=== PATIENT | male | born 1945 ===

== ENCOUNTER 2017-04-29 05:46 | Inpatient (IN) | payer OTHER, SELFPAY ==
[2017-04-29] MEDS ORDERED: Nitroglycerin 2% Ointment Foilpak UD TOP STA (06:09)
[2017-04-29] MEDS ORDERED: Nitroglycerin 2% Ointment Foilpak UD TOP ONE (06:15)
--- NOTE | 2017-04-29 06:23 | C.PDOC ---
History Of Present Illness <Joshua Rebolledo - Last Filed: 04/29/17 06:40> <Jairo Flores - Last Filed: 04/29/17 07:54> 71 year old male presents to the ED with complaints of worsening SOB for two days. Patient states he is poor compliance with his medications and sees and unknown manager emergency department in [place]. He denies any chest pain, cough, or palpitations. (Joshua Rebolledo) History Per: Patient History/Exam Limitations: no limitations Onset/Duration Of Symptoms: Days (2) Current Symptoms Are (Timing): Still Present Associated Symptoms: denies: Fever, Chills, Bloody Cough, Productive Cough, Dizziness Recent travel outside of the [place]: No <Joshua Rebolledo - Last Filed: 04/29/17 06:40> <Jairo Flores - Last Filed: 04/29/17 07:54> Time Seen by Provider: 04/29/17 06:04 Chief Complaint (Nursing): Shortness Of Breath Past Medical History Reviewed: Historical Data, Nursing Documentation, Vital Signs - Medical History PMH: CHF, HTN, Hypercholesterolemia Surgical History: CABG Family History: States: Unknown Family Hx - Social History Hx Tobacco Use: No Hx Alcohol Use: No Hx Substance Use: No - Immunization History Hx Tetanus Toxoid Vaccination: No Hx Influenza Vaccination: No Hx Pneumococcal Vaccination: No <Joshua Rebolledo - Last Filed: 04/29/17 06:40> Review Of Systems Constitutional: Negative for: Fever, Chills Cardiovascular: Negative for: Chest Pain, Palpitations Respiratory: Positive for: Shortness of Breath. Negative for: Cough Gastrointestinal: Negative for: Nausea, Vomiting, Abdominal Pain, Diarrhea <Joshua Rebolledo - Last Filed: 04/29/17 06:40> Physical Exam - Physical Exam Appears: Non-toxic, In Acute Distress (patient in mild distress ), Other ( Patient is not obese. ) Skin: Warm, Dry Head: Atraumatic Eye(s): bilateral: Normal Inspection Oral Mucosa: Moist Neck: Supple Chest: Symmetrical, No Deformity Cardiovascular: Rhythm Regular, Other (mild jugular venous distension ) Respiratory: Rales (mild rales at bilateral bases ), No Rhonchi, No Stridor, No Wheezing Gastrointestinal/Abdominal: Soft, No Tenderness, No Distention, No Guarding, No Rebound Extremity: Normal ROM, No Tenderness, No Pedal Edema, No Calf Tenderness, Capillary Refill (good capillary refill, less than two seconds ), No Swelling, Other (no edema to the lower extremities ) Neurological/Psych: Oriented x3 <Joshua Rebolleod - Last Filed: 04/29/17 06:40> ED Course And Treatment ECG: Interpreted By Me ECG Rhythm: Sinus Rhythm ECG Interpretation: Abnormal Rate From EC O2 Sat by Pulse Oximetry: 99 (room air ) Pulse Ox Interpretation: Normal - Radiology CXR: Interpreted by Me CXR Interpretation: Yes: No Acute Disease, Other (no CHF) Reevaluation Time: 06:41 Reassessment Condition: Improved <Joshua Rebolledo Last Filed: 04/29/17 06:40> - Laboratory Results Result Diagrams: 04/29/17 06:28 04/29/17 06:28 <Jairo Flores - Last Filed: 04/29/17 07:54> Medical Decision Making <Joshua Rebolledo - Last Filed: 04/29/17 06:40> <Jairo Flores - Last Filed: 04/29/17 07:54> Medical Decision Makinam pt s/o to me by Dr Rebolledo pending lab tests. 730am disc plan for admission w pt. he is resting quietly no distress. 753am disc w hospitalist Dr Irving, will admit for shortness of breath, anginal equivalent. (Jairo Flores) Disposition <Joshua Rebolledo - Last Filed: 04/29/17 06:40> - Disposition Disposition Time: 07:54 <Jairo Flores - Last Filed: 04/29/17 07:54> - Disposition Disposition: HOSPITALIZED Condition: STABLE - Clinical Impression Clinical Impression: Systolic and diastolic CHF, chronic, Ischemic cardiomyopathy, Shortness of breath - Scribe Statement The provider has reviewed the documentation as recorded by the Scribe <Joshua Rebolledo - Last Filed: 04/29/17 06:40> <Jairo Flores - Last Filed: 04/29/17 07:54> - Scribe Statement Tanika Bose All medical record entries made by the Scribe were at my direction and personally dictated by me. I have reviewed the chart and agree that the record accurately reflects my personal performance of the history, physical exam, medical decision making, and the department course for this patient. I have also personally directed, reviewed, and agree with the discharge instructions and disposition. (Joshua Rebolledo) Physician Patient Turnover Patient Signed Over To: Jairo Flores Handoff Comments: follow-up labs and adm to hospitalists as needed. <Joshua Rebolledo - Last Filed: 04/29/17 06:40>
[2017-04-29 06:44] LABS: CHLORIDE 99 mmol/L (98-107)
[2017-04-29 06:45] LABS: POTASSIUM 4.2 mmol/L (3.6-5.2); SODIUM 139 mmol/L (132-148)
[2017-04-29 06:47] LABS: ALB/GLOB RATIO 1.2 (1.0-2.1); ALKALINE PHOSPHATASE 44 U/L (38-126); AST/SGOT 24 U/L (17-59); BILIRUBIN,TOTAL 0.5 mg/dL (0.2-1.3); CARBON DIOXIDE 31 mmol/L (22-30); GFR AFRICAN-AMERICAN > 60; TOTAL PROTEIN 6.7 g/dL (6.3-8.3)
[2017-04-29 06:48] LABS: ALT/SGPT 22 U/L (21-72); BLOOD UREA NITROGEN 29 mg/dL (9-20); CALCIUM 8.5 mg/dl (8.6-10.4); GLUCOSE,RANDOM 101 mg/dL (75-110)
[2017-04-29 06:49] LABS: BASO # 0.1 K/uL (0.0-0.2); BASO % 0.9 % (0.0-2.0); EOS # 0.4 K/uL (0.0-0.7); EOS % 5.8 % (0.0-4.0); HEMATOCRIT 43.8 % (35.0-51.0); LYMPH % 31.4 % (20.0-40.0); MEAN CELL VOLUME 96.5 fL (80.0-94.0); MEAN CORPUSCULAR HEMOGLOBIN 32.3 pg (27.0-31.0); MEAN CORPUSCULAR HGB CONC 33.4 g/dL (33.0-37.0); MONO # 0.6 K/uL (0.0-0.8); MONO % 9.3 % (0.0-10.0); RED CELL DISTRIBUTION WIDTH 12.7 % (11.5-14.5); WHITE BLOOD COUNT 6.3 K/uL (4.8-10.8)
[2017-04-29 06:52] LABS: INR 0.9
--- NOTE | 2017-04-29 09:13 | CP.PCM.PN ---
Subjective - Date & Time of Evaluation Date of Evaluation: 04/29/17 Time of Evaluation: 09:30 - Subjective Subjective: This is a 80-year-old male with a past medical history of hypertension, high cholesterol, CHF, CAD, CABG surgery 8 years ago ( he does not know the number of vessel bypass) aand smoking history, and likely has a history of COPD. He came with a chief complaint of worsening SOB for two days. and last night he woke up with a lot of difficulty breathing, and he reports dyspnea particularly on exertion. He was recently here he had a cardiac cath done showing a of about 25-30%in January 2016. At that time he was discharged with a life vest due to the low EF. When I saw him done in the ER, he did not have this LifeVest. The patient was not sure when this LifeVest was removed. Apparently he also sees a language path in [facility] When I saw the patient his breathing was improved a little, he had been given lasix already. Per review of the CXRAY he did not look fulminatly in CHF, also BNP was low this time. He does look dry on exam, no pitting edema - also very distant breath sounds. I realize that he has been treated for CHF in the past however it appears that this time it maybe more of a COPD/Emphesema that is occuring. We will continue with PO lasix, also check a CT without contrast of the chest, cardiac markers, another EKG (he has a RBB) and also give solumedrol 125 x1 and then 40 BID. Start nebulizer treatments as well as Spiriva. Continue other home medication such as statin, MARY, coreg, ASA. Medications he had with him include: Lisinopril 10mg QD Coreg 6.25 BID ASA 81 QD Simvastatin 10 QD KCL 20 These medication bottles have a Dr Dejesus as the prescriber whom I do not know. And when I asked patient he is not sure either. PMD: Dr. Joe (but I don't see visits on the computer) Allergies: NKDA PMHx: CAD, gastritis, HTN and diastolic and systolic CHF PSHx: CABG 2008, ulcer repair 1991 Family Hx: mother and father MIs (unknown ages) Social Hx: smoked tobacco 1ppd for 54 years quit 7 years ago, denies ETOH use, denies illicit drug use, lives with , retired construction management assistant Objective - Vital Signs/Intake and Output Vital Signs (last 24 hours): Temp Pulse Resp BP Pulse Ox 98 F 94 H 22 115/78 94 L 04/29/17 06:26 04/29/17 08:30 04/29/17 08:30 04/29/17 08:30 04/29/17 08:30 - Medications Medications: Current Medications Albuterol/Ipratropium (Duoneb 3 Mg/0.5 Mg (3 Ml) Ud) 3 ml INH RQ6 DAPHNIE Aspirin (Aspirin Chewable) 81 mg PO DAILY DAPHNIE Budesonide (Pulmicort Respules) 0.5 mg INH RQ12 DAPHNIE Carvedilol (Coreg) 3.125 mg PO BID DAPHNIE Docusate Sodium (Colace) 100 mg PO BID DAPHNIE Furosemide (Lasix) 40 mg PO DAILY DAPHNIE Heparin Sodium (Porcine) (Heparin) 5,000 units SC Q12 DAPHNIE Lisinopril (Zestril) 2.5 mg PO DAILY DAPHNIE Methylprednisolone (Solu-Medrol) 125 mg IV ONCE ONE Stop: 04/29/17 09:03 Methylprednisolone (Solu-Medrol) 40 mg IV Q12 DAPHNIE Pantoprazole Sodium (Protonix Ec Tab) 40 mg PO DAILY DAPHNIE Rosuvastatin Calcium (Crestor) 10 mg PO HS DAPHNIE Tiotropium [place] (Spiriva) 18 mcg INH RQ24 DAPHNIE Tiotropium [place] (Spiriva Inhalation Handihaler Device) 1 inhaler INH ONCE ONE Stop: 04/29/17 09:05 - Labs Labs: PT 10.2 SECONDS (9.7-12.2) 04/29/17 06:28 INR 0.9 04/29/17 06:28 APTT 29 SECONDS (21-34) 04/29/17 06:28 - Constitutional Appears: No Acute Distress, Cachectic, Chronically Ill - Head Exam Head Exam: NORMAL INSPECTION - Eye Exam Eye Exam: EOMI, Normal appearance - ENT Exam ENT Exam: Mucous Membranes Moist - Respiratory Exam Respiratory Exam: Decreased Breath Sounds, NORMAL BREATHING PATTERN Additional comments: Very very distant breath sounds - Cardiovascular Exam Cardiovascular Exam: REGULAR RHYTHM - GI/Abdominal Exam GI & Abdominal Exam: Soft, Normal Bowel Sounds - Neurological Exam Neurological Exam: Alert, Awake, CN II-XII Intact, Oriented x3 Neuro motor strength exam: Left Upper Extremity: 5, Right Upper Extremity: 5, Left Lower Extremity: 5, Right Lower Extremity: 5 - Skin Skin Exam: Warm Additional comments: Flushed, pink appearance
--- NOTE | 2017-04-29 09:23 | CP.PCM.HP ---
History of Present Illness - History of Present Illness History of Present Illness: This is a 80-year-old male with a past medical history of hypertension, high cholesterol, CHF, CAD, CABG surgery 8 years ago ( he does not know the number of vessel bypass) aand smoking history, and likely has a history of COPD. He came with a chief complaint of worsening SOB for two days. and last night he woke up with a lot of difficulty breathing, and he reports dyspnea particularly on exertion. He was recently here he had a cardiac cath done showing a of about 25-30%in January 2016. At that time he was discharged with a life vest due to the low EF. When I saw him done in the ER, he did not have this LifeVest. The patient was not sure when this LifeVest was removed. Apparently he also sees a broadcast operations manager in [facility] When I saw the patient his breathing was improved a little, he had been given lasix already. Per review of the CXRAY he did not look fulminatly in CHF, also BNP was low this time. He does look dry on exam, no pitting edema - also very distant breath sounds. I realize that he has been treated for CHF in the past however it appears that this time it maybe more of a COPD/Emphesema that is occuring. We will continue with PO lasix, also check a CT without contrast of the chest, cardiac markers, another EKG (he has a RBB) and also give solumedrol 125 x1 and then 40 BID. Start nebulizer treatments as well as Spiriva. Continue other home medication such as statin, MARY, coreg, ASA. Medications he had with him include: Lisinopril 10mg QD Coreg 6.25 BID ASA 81 QD Simvastatin 10 QD KCL 20 These medication bottles have a Dr Dejesus as the prescriber whom I do not know. And when I asked patient he is not sure either. PMD: Dr. Joe (but I don't see visits on the computer) Allergies: NKDA PMHx: CAD, gastritis, HTN and diastolic and systolic CHF PSHx: CABG 2008, ulcer repair 1991 Family Hx: mother and father MIs (unknown ages) Social Hx: smoked tobacco 1ppd for 54 years quit 7 years ago, denies ETOH use, denies illicit drug use, lives with , retired construction lineman Present on Admission - Present on Admission Any Indicators Present on Admission: Yes History of DVT/PE: No History of Uncontrolled Diabetes: No Urinary Catheter: No Decubitus Ulcer Present: No Review of Systems - Constitutional Constitutional: Fatigue - Cardiovascular Cardiovascular: Chest Pain, Dyspnea on Exertion - Respiratory Respiratory: Dyspnea, Dyspnea on Exertion, Chest Congestion, Excessive Mucous Production - Gastrointestinal Gastrointestinal: absent: Abdominal Pain, Belching, Bloating - Genitourinary Genitourinary: absent: As Per HPI, Change in Urinary Stream, Difficulty Urinating - Musculoskeletal Musculoskeletal: absent: As Per HPI, Abnormal Gait - Neurological Neurological: absent: Abnormal Gait, Abnormal Hearing, Abnormal Movements Past Patient History - Past Medical History & Family History Past Medical History?: Yes - Past Social History Smoking Status: Former Smoker - CARDIAC Hx Congestive Heart Failure: Yes Hx Hypercholesterolemia: Yes Hx Hypertension: Yes - PULMONARY Hx Respiratory Disorders: No - NEUROLOGICAL Hx Neurological Disorder: No - HEENT Hx HEENT Problems: No - RENAL Hx Chronic Kidney Disease: No - ENDOCRINE/METABOLIC Hx Endocrine Disorders: No - HEMATOLOGICAL/ONCOLOGICAL Hx Blood Disorders: No - INTEGUMENTARY Hx Dermatological Problems: No - MUSCULOSKELETAL/RHEUMATOLOGICAL Hx Falls: No - GASTROINTESTINAL Hx Gastrointestinal Disorders: No - GENITOURINARY/GYNECOLOGICAL Hx Genitourinary Disorders: No - PSYCHIATRIC Hx Substance Use: No - SURGICAL HISTORY Hx Coronary Artery Bypass Graft: Yes - ANESTHESIA Hx Anesthesia: Yes Hx Anesthesia Reactions: No Meds Allergies/Adverse Reactions: Allergies Allergy/AdvReac Type Severity Reaction Status Date / Time No Known Allergies Allergy Verified 04/29/17 06:00 Physical Exam - Constitutional Appears: No Acute Distress, Chronically Ill - Head Exam Head Exam: NORMAL INSPECTION - Eye Exam Eye Exam: EOMI, Normal appearance - ENT Exam ENT Exam: Mucous Membranes Moist - Respiratory Exam Respiratory Exam: Decreased Breath Sounds Additional comments: Very very distant breath sounds. Almost barrel shaped appearance - Cardiovascular Exam Cardiovascular Exam: REGULAR RHYTHM - GI/Abdominal Exam GI & Abdominal Exam: Normal Bowel Sounds - Neurological Exam Neurological exam: Alert, CN II-XII Intact, Oriented x3 - Psychiatric Exam Psychiatric exam: Normal Affect, Normal Mood - Skin Skin Exam: Warm Additional comments: Flsuhed, pink appearnce Results - Vital Signs Recent Vital Signs: Last Vital Signs Temp 98 F 04/29/17 06:26 Pulse 94 H 04/29/17 08:30 Resp 22 04/29/17 08:30 BP 115/78 04/29/17 08:30 Pulse Ox 94 L 04/29/17 08:30 - Labs Result Diagrams: 04/29/17 06:28 04/29/17 06:28 Assessment & Plan (1) COPD (chronic obstructive pulmonary disease) Status: Suspected Priority: High Comment: IV solumedrol 125 x 1, then 40 IV BID. Started on Spiriva as well as Duonebulizers. Will also get a CT without contrast. He does not have a WBC, denied fever so will not give abx at this time (2) Chest pain, rule out acute myocardial infarction Status: Acute Comment: Will get additional cardiac enzymes, repeat EKG. He has a RBB. Also history of CABG, CAD noted as well. Continue ASA, Statin, Coreg, MARY-I (3) Systolic and diastolic CHF, chronic Status: Chronic Comment: History of EF being 25-30% in January of 2016. He was discharged on a life vest at that time. Currently continue with the PO lasix. He does not look fluid overload - he looks dry on exam. Also CXRAY and BNP look ok. This being said, continue with MARY and Coreg. Monitor for fluid overload. Check an Echo (4) Hx of CABG Status: Chronic Comment: He does not know how many vessel bypass. continue with the statin, coreg, ASA, and MARY-I (5) Prophylactic measure Status: Acute Comment: Protonix PO. Heparin SC BID
--- NOTE | 2017-04-29 10:01 | RAD ---
PROCEDURE: CHEST RADIOGRAPH, 1 VIEW HISTORY: Shortness of breath COMPARISON: 04/04/2016. FINDINGS: LUNGS: The lungs are well inflated and clear. PLEURA: No pneumothorax or pleural fluid seen. CARDIOVASCULAR: There is mild cardiomegaly. Status post CABG. OSSEOUS STRUCTURES: No significant abnormalities. VISUALIZED UPPER ABDOMEN: Normal. OTHER FINDINGS: None. IMPRESSION: No active pulmonary disease.
[2017-04-29] MEDS: Pantoprazole 40 mg EC Tab PO SCH (10:30)
--- NOTE | 2017-04-29 11:49 | CT ---
PROCEDURE: CT Chest without contrast HISTORY: shortness of breath, history of smoking COMPARISON: Chest radiograph performed the same day. TECHNIQUE: Contiguous axial images were obtained through the chest without intravenous contrast enhancement. Sagittal and coronal reconstructions were performed. Radiation dose (DLP): 263.39 mGy-cm. This CT exam was performed using one or more of the following dose reduction techniques: Automated exposure control, adjustment of the mA and/or kV according to patient size, and/or use of iterative reconstruction technique. FINDINGS: LUNGS: There is mild centrilobular emphysema in the lungs. There is a 8 mm subpleural nodule in the left anterior apex. There is no focal consolidation. The lungs are well inflated. There are no endobronchial lesions. MEDIASTINUM: There is aneurysmal dilatation of the ascending aorta which measures 4.0 x 3.9 cm. The heart is normal in size. There is no pericardial effusion. There are advanced atherosclerotic coronary artery calcifications. PLEURA: No pleural fluid. No pneumothorax. BONES: No fracture. No destructive lesion. Multilevel degenerative changes in the spine. UPPER ABDOMEN: There is a 2.2 cm simple cyst in the right hepatic lobe. There is also a 2.6 cm simple cyst in the upper pole of the right kidney.There is a 10 mm adenoma in the left adrenal gland. OTHER FINDINGS: None. IMPRESSION: 8 mm subpleural nodule in the left anterior apex. Follow up CT scan in 6 months is recommended to assess stability. No focal consolidation.
[2017-04-29] MEDS: Albuterol-Ipratrop 3 mg / 0.5 (3 ml) UD INH SCH ×2 (13:40→19:45)
[2017-04-29] MEDS: Budesonide 0.5 mg/2 ml Inhal Susp UD INH SCH (19:45)
[2017-04-29] MEDS: MethylPREDNISolone 40 mg Vial IV SCH (21:45)
[2017-04-30] MEDS: Albuterol-Ipratrop 3 mg / 0.5 (3 ml) UD INH SCH ×4 (01:11→19:03)
[2017-04-30] MEDS: Budesonide 0.5 mg/2 ml Inhal Susp UD INH SCH ×2 (08:28→19:03)
[2017-04-30] MEDS: Tiotropium 18 mcg Cap For Inhalation INH SCH (08:28)
[2017-04-30] MEDS: MethylPREDNISolone 40 mg Vial IV SCH ×2 (08:59→22:22)
[2017-04-30] MEDS: Pantoprazole 40 mg EC Tab PO SCH (09:00)
[2017-04-30 09:53] LABS: EOS % 0.1 % (0.0-4.0); HEMATOCRIT 44.2 % (35.0-51.0); LYMPH # 1.5 K/uL (1.0-4.3); MEAN CORPUSCULAR HEMOGLOBIN 31.5 pg (27.0-31.0); MEAN PLATELET VOLUME 7.9 fL (7.2-11.7); MONO # 0.9 K/uL (0.0-0.8); RED CELL DISTRIBUTION WIDTH 13.1 % (11.5-14.5)
[2017-04-30 10:02] LABS: BASO % 0.2 % (0.0-2.0); CHLORIDE 95 mmol/L (98-107); LYMPH % 10.6 % (20.0-40.0); MEAN CELL VOLUME 95.9 fL (80.0-94.0); MEAN CORPUSCULAR HGB CONC 32.8 g/dL (33.0-37.0); MONO % 6.3 % (0.0-10.0); SODIUM 136 mmol/L (132-148); WHITE BLOOD COUNT 14.4 K/uL (4.8-10.8)
[2017-04-30 10:03] LABS: POTASSIUM 3.7 mmol/L (3.6-5.2)
[2017-04-30 10:05] LABS: CARBON DIOXIDE 31 mmol/L (22-30); CHOLESTEROL 155 mg/dL (0-199); GFR AFRICAN-AMERICAN > 60
[2017-04-30 10:06] LABS: BLOOD UREA NITROGEN 27 mg/dL (9-20); CALCIUM 9.1 mg/dl (8.6-10.4); GLUCOSE,RANDOM 106 mg/dL (75-110)
[2017-04-30 10:36] LABS: THYROID STIMULATING HORMONE 0.43 mIU/L (0.46-4.68)
--- NOTE | 2017-04-30 10:38 | CP.PCM.PN ---
<Chet Olivarez - Last Filed: 04/30/17 10:38> Subjective - Date & Time of Evaluation Date of Evaluation: 04/30/17 Time of Evaluation: 07:05 Objective - Vital Signs/Intake and Output Vital Signs (last 24 hours): Temp Pulse Resp BP Pulse Ox 97.6 F 66 18 145/94 H 95 04/30/17 07:25 04/30/17 07:25 04/30/17 07:25 04/30/17 08:59 04/30/17 07:25 - Medications Medications: Current Medications Albuterol/Ipratropium (Duoneb 3 Mg/0.5 Mg (3 Ml) Ud) 3 ml INH RQ6 DAPHNIE Last Admin: 04/30/17 08:28 Dose: 3 ml Aspirin (Aspirin Chewable) 81 mg PO DAILY [facility] Last Admin: 04/30/17 09:00 Dose: 81 mg Budesonide (Pulmicort Respules) 0.5 mg INH RQ12 DAPHNIE Last Admin: 04/30/17 08:28 Dose: Not Given Carvedilol (Coreg) 3.125 mg PO BID [facility] Last Admin: 04/30/17 09:00 Dose: 3.125 mg Docusate Sodium (Colace) 100 mg PO BID DAPHNIE Last Admin: 04/30/17 09:00 Dose: 100 mg Furosemide (Lasix) 40 mg PO DAILY [facility] Last Admin: 04/30/17 08:59 Dose: 40 mg Heparin Sodium (Porcine) (Heparin) 5,000 units SC Q12 DAPHNIE Last Admin: 04/30/17 08:59 Dose: 5,000 units Lactulose (Enulose) 20 gm PO ONCE ONE Stop: 04/30/17 10:35 Lisinopril (Zestril) 2.5 mg PO DAILY [facility] Last Admin: 04/29/17 10:30 Dose: 2.5 mg Methylprednisolone (Solu-Medrol) 40 mg IV Q12 DAPHNIE Last Admin: 04/30/17 08:59 Dose: 40 mg Pantoprazole Sodium (Protonix Ec Tab) 40 mg PO DAILY [facility] Last Admin: 04/30/17 09:00 Dose: 40 mg Rosuvastatin Calcium (Crestor) 10 mg PO HS DAPHNIE Last Admin: 04/29/17 21:45 Dose: 10 mg Tiotropium [place] (Spiriva) 18 mcg INH RQ24 DAPHNIE Last Admin: 04/30/17 08:28 Dose: 18 mcg - Labs Labs: 04/30/17 09:48 04/30/17 09:48 PT 10.2 SECONDS (9.7-12.2) 04/29/17 06:28 INR 0.9 04/29/17 06:28 APTT 29 SECONDS (21-34) 04/29/17 06:28 Assessment and Plan - Assessment and Plan (Free Text) Assessment: CT Chest w/o contr. - 8 mm subpleural nodule in the left anterior apex. Follow up CT scan in 6 months is recommended to assess stability. <Chet Irving Samy - Last Filed: 04/30/17 12:36> Subjective - Subjective Subjective: Patient was seen and examined by me. The patient was reporting that his breathing was somewhat better. He denied chest pain, denied palpitation, denied dizziness, denied headache, reports eating is ok. Reports urinating ok. He reports + no BM in 2 days, and + coughing On exam he still has very distant breath sounds. Also I had him walk around in the hallway and he did so easily without chest pain or shortness of breath, on telemetry he was sinus in the 90s when I walked him The CT scan did not show infiltrates but did report a lesion that needs to be re -assessed in 6 months. Objective - Vital Signs/Intake and Output Vital Signs (last 24 hours): Temp Pulse Resp BP Pulse Ox 97.6 F 66 18 145/94 H 95 04/30/17 07:25 04/30/17 07:25 04/30/17 07:25 04/30/17 08:59 04/30/17 07:25 - Medications Medications: Current Medications Albuterol/Ipratropium (Duoneb 3 Mg/0.5 Mg (3 Ml) Ud) 3 ml INH RQ6 [facility] Last Admin: 04/30/17 08:28 Dose: 3 ml Aspirin (Aspirin Chewable) 81 mg PO DAILY [facility] Last Admin: 04/30/17 09:00 Dose: 81 mg Budesonide (Pulmicort Respules) 0.5 mg INH RQ12 [facility] Last Admin: 04/30/17 08:28 Dose: Not Given Carvedilol (Coreg) 3.125 mg PO BID [facility] Last Admin: 04/30/17 09:00 Dose: 3.125 mg Docusate Sodium (Colace) 100 mg PO BID [facility] Last Admin: 04/30/17 09:00 Dose: 100 mg Furosemide (Lasix) 40 mg PO DAILY [facility] Last Admin: 04/30/17 08:59 Dose: 40 mg Heparin Sodium (Porcine) (Heparin) 5,000 units SC Q12 [facility] Last Admin: 04/30/17 08:59 Dose: 5,000 units Lisinopril (Zestril) 2.5 mg PO DAILY [facility] Last Admin: 04/30/17 10:43 Dose: 2.5 mg Methylprednisolone (Solu-Medrol) 40 mg IV Q12 [facility] Last Admin: 04/30/17 08:59 Dose: 40 mg Pantoprazole Sodium (Protonix Ec Tab) 40 mg PO DAILY [facility] Last Admin: 04/30/17 09:00 Dose: 40 mg Rosuvastatin Calcium (Crestor) 10 mg PO HS [facility] Last Admin: 04/29/17 21:45 Dose: 10 mg Tiotropium [place] (Spiriva) 18 mcg INH RQ24 [facility] Last Admin: 04/30/17 08:28 Dose: 18 mcg - Labs Labs: 04/30/17 09:48 04/30/17 09:48 PT 10.2 SECONDS (9.7-12.2) 04/29/17 06:28 INR 0.9 04/29/17 06:28 APTT 29 SECONDS (21-34) 04/29/17 06:28 - Constitutional Appears: Well, No Acute Distress - Head Exam Head Exam: NORMAL INSPECTION, NORMOCEPHALIC - Eye Exam Eye Exam: EOMI - ENT Exam ENT Exam: Mucous Membranes Moist - Respiratory Exam Respiratory Exam: Decreased Breath Sounds, NORMAL BREATHING PATTERN Additional comments: Distant breath sounds - GI/Abdominal Exam GI & Abdominal Exam: Soft, Normal Bowel Sounds - Neurological Exam Neurological Exam: Alert, Awake, Oriented x3 - Psychiatric Exam Psychiatric exam: Normal Affect, Normal Mood - Skin Skin Exam: Normal Color, Warm Assessment and Plan (1) COPD (chronic obstructive pulmonary disease) Status: Suspected (2) Chest pain, rule out acute myocardial infarction Status: Acute (3) Systolic and diastolic CHF, chronic Status: Chronic (4) Hx of CABG Status: Chronic (5) Prophylactic measure Status: Acute - Assessment and Plan (Free Text) Assessment: Assessment & Plan (1) COPD (chronic obstructive pulmonary disease) 04/30: Today breathing is improved, was able to walk him around the hallway. He still has some coughing. WBC is high - probably from solumedrol. Monitor for fevers. The CT of the chest did not show infiltrates. Needs a repeat CT in 6 months to assess a nodule. History of smoking 04/29: IV solumedrol 125 x 1, then 40 IV BID. Started on Spiriva as well as Duonebulizers. Will also get a CT without contrast. He does not have a WBC, denied fever so will not give abx at this time (2) Chest pain, rule out acute myocardial infarction 04/30: Cardiac enzymes negative Will get additional cardiac enzymes, repeat EKG. He has a RBB. Also history of CABG, CAD noted as well. Continue ASA, Statin, Coreg, MARY-I (3) Systolic and diastolic CHF, chronic 04/30: Pending echo at this time History of EF being 25-30% in January of 2016. He was discharged on a life vest at that time. Currently continue with the PO lasix. He does not look fluid overload - he looks dry on exam. Also CXRAY and BNP look ok. This being said, continue with MARY and Coreg. Monitor for fluid overload. Check an Echo (4) Hx of CABG He does not know how many vessel bypass. continue with the statin, coreg, ASA, and MARY-I (5) Prophylactic measure Protonix PO. Heparin SC BID
[2017-04-30 16:05] VITALS: RESP 20
[2017-05-01] MEDS: Albuterol-Ipratrop 3 mg / 0.5 (3 ml) UD INH SCH ×3 (01:04→13:47)
[2017-05-01 07:22] LABS: BASO % 0.1 % (0.0-2.0); HEMATOCRIT 43.2 % (35.0-51.0); LYMPH # 0.9 K/uL (1.0-4.3); LYMPH % 10.6 % (20.0-40.0); MEAN CELL VOLUME 95.8 fL (80.0-94.0); MEAN CORPUSCULAR HEMOGLOBIN 31.4 pg (27.0-31.0); MEAN CORPUSCULAR HGB CONC 32.7 g/dL (33.0-37.0); MEAN PLATELET VOLUME 8.1 fL (7.2-11.7); MONO # 0.4 K/uL (0.0-0.8); MONO % 4.1 % (0.0-10.0); NRBC % 0.1 % (0.0-2.0); RED CELL DISTRIBUTION WIDTH 13.3 % (11.5-14.5); WHITE BLOOD COUNT 8.8 K/uL (4.8-10.8)
[2017-05-01] MEDS: Budesonide 0.5 mg/2 ml Inhal Susp UD INH SCH (07:35)
[2017-05-01] MEDS: Tiotropium 18 mcg Cap For Inhalation INH SCH (07:35)
[2017-05-01 07:40] LABS: CHLORIDE 100 mmol/L (98-107)
[2017-05-01 07:41] LABS: POTASSIUM 4.2 mmol/L (3.6-5.2); SODIUM 138 mmol/L (132-148)
[2017-05-01 07:43] LABS: ALB/GLOB RATIO 1.3 (1.0-2.1); ALKALINE PHOSPHATASE 43 U/L (38-126); ALT/SGPT 16 U/L (21-72); AST/SGOT 17 U/L (17-59); BILIRUBIN,TOTAL 0.5 mg/dL (0.2-1.3); BLOOD UREA NITROGEN 30 mg/dL (9-20); CARBON DIOXIDE 30 mmol/L (22-30); GFR AFRICAN-AMERICAN > 60; GLUCOSE,RANDOM 116 mg/dL (75-110); TOTAL PROTEIN 6.1 g/dL (6.3-8.3)
[2017-05-01 07:44] LABS: CALCIUM 8.8 mg/dl (8.6-10.4); MAGNESIUM 2.1 mg/dL (1.6-2.3); PHOSPHOROUS 4.5 mg/dL (2.5-4.5)
[2017-05-01] MEDS: MethylPREDNISolone 40 mg Vial IV SCH (09:40)
[2017-05-01] MEDS: Pantoprazole 40 mg EC Tab PO SCH (09:41)
--- NOTE | 2017-05-01 14:57 | CARD ---
APPROVED REPORT EXAM: Two-dimensional and M-mode echocardiogram with Doppler and color Doppler. Other Information Quality : GoodRhythm : NSR INDICATION CAD Congestive Heart Failure COPD Surgery/Intervention CABG: RISK FACTORS Hypertension Smoking 2D DIMENSIONS IVSd1.1 (0.7-1.1cm)Aortic Root (2D)3.1 (2.0-3.7cm) LVDd5.1 (3.9-5.9cm)PWd0.7 (0.7-1.1cm) LVDs4.5 (2.5-4.0cm)FS (%) 12.3 % LVEF (%)26.4 (>50%) M-Mode DIMENSIONS RVDd1.66 (2.1-3.2cm)Left Atrium (MM)3.65 (2.5-4.0cm) Aortic Root3.10 (2.2-3.7cm)Aortic Cusp Exc.1.92 (1.5-2.0cm) Mitral Valve MV E Fxnphfxk43.8cm/sMV A Absrxpnz03.6cm/sE/A ratio0.7 TDI E/Lateral E'0.0E/Medial E'0.0 Tricuspid Valve TR Peak Ynsfnrkc276pf/sTR Peak Gr.[id number] LEFT VENTRICLE The left ventricle is normal size. There is normal left ventricular wall thickness. The left ventricular function is normal. The left ventricular ejection fraction is within the normal range. About 60% The basal-inferior wall is hypokinetic. Transmitral Doppler flow pattern is Grade I-abnormal relaxation pattern. No left ventricle thrombus noted on this study. There is no ventricular septal defect visualized. There is no left ventricular aneurysm. There is no mass noted in the left ventricle. RIGHT VENTRICLE The right ventricle is normal size. There is normal right ventricular wall thickness. The right ventricular systolic function is normal. ATRIA The left atrium size is normal. The right atrium size is normal. The interatrial septum is intact with no evidence for an atrial septal defect. A mobile interatrial septal aneurysm is noted. Color doppler does not demonstrated a PFO. AORTIC VALVE The aortic valve is normal in structure and function. No aortic regurgitation is present. There is no aortic valvular stenosis. There is no aortic valvular vegetation. MITRAL VALVE The mitral valve is normal in structure and function. There is no evidence of mitral valve prolapse. There is no mitral valve stenosis. There is no mitral valve regurgitation noted. TRICUSPID VALVE The tricuspid valve is normal in structure and function. There is no tricuspid valve regurgitation noted. There is no tricuspid valve prolapse or vegetation. There is no tricuspid valve stenosis. PULMONIC VALVE The pulmonary valve is normal in structure and function. There is no pulmonic valvular regurgitation. There is no pulmonic valvular stenosis. GREAT VESSELS The aortic root is normal in size. The ascending aorta is normal in size. The pulmonary artery is normal. The IVC is normal in size and collapses >50% with inspiration. PERICARDIAL EFFUSION The pericardium appears normal. There is no pleural effusion. <Conclusion> The left ventricular function is overall normal. The left ventricular ejection fraction is within the normal range. About 60% The basal-inferior wall is hypokinetic. A mobile interatrial septal aneurysm is noted. Color doppler does not demonstrated a PFO.
[2017-05-01 16:12] VITALS: O2SAT 97
--- NOTE | 2017-05-01 17:38 | CARD ---
APPROVED REPORT EKG Measurement Heart [id number] ME [id number] <Conclusion> Normal sinus rhythm Right bundle branch block Left posterior fascicular block Bifascicular block Inferior infarct, age undetermined Abnormal ECG
[2017-05-01 18:43] VITALS: BP 134/87; PULSE 96; TEMP 98.5
--- NOTE | 2017-05-01 21:51 | CP.PCM.DIS ---
<Danyel Parra E - Last Filed: 05/01/17 21:52> Provider - Provider Date of Admission: 04/29/17 08:54 Attending physician: Chet Irving DO Time Spent in preparation of Discharge (in minutes): 45 Hospital Course - Lab Results Lab Results: Most Recent Lab Values WBC 8.8 K/uL (4.8-10.8) 05/01/17 07:09 RBC 4.51 Mil/uL (4.40-5.90) 05/01/17 07:09 Hgb 14.1 g/dL (12.0-18.0) 05/01/17 07:09 Hct 43.2 % (35.0-51.0) 05/01/17 07:09 MCV 95.8 fL (80.0-94.0) H 05/01/17 07:09 MCH 31.4 pg (27.0-31.0) H 05/01/17 07:09 MCHC 32.7 g/dL (33.0-37.0) L 05/01/17 07:09 RDW 13.3 % (11.5-14.5) 05/01/17 07:09 Plt Count 222 K/uL (130-400) 05/01/17 07:09 MPV 8.1 fL (7.2-11.7) 05/01/17 07:09 Neut % (Auto) 85.2 % (50.0-75.0) H 05/01/17 07:09 Lymph % (Auto) 10.6 % (20.0-40.0) L 05/01/17 07:09 [place] % (Auto) 4.1 % (0.0-10.0) 05/01/17 07:09 Eos % (Auto) 0.0 % (0.0-4.0) 05/01/17 07:09 Baso % (Auto) 0.1 % (0.0-2.0) 05/01/17 07:09 Neut # 7.5 K/uL (1.8-7.0) H 05/01/17 07:09 Lymph # 0.9 K/uL (1.0-4.3) L 05/01/17 07:09 [place] # 0.4 K/uL (0.0-0.8) 05/01/17 07:09 Eos # 0.0 K/uL (0.0-0.7) 05/01/17 07:09 Baso # 0.0 K/uL (0.0-0.2) 05/01/17 07:09 PT 10.2 SECONDS (9.7-12.2) 04/29/17 06:28 INR 0.9 04/29/17 06:28 APTT 29 SECONDS (21-34) 04/29/17 06:28 Sodium 138 mmol/L (132-148) 05/01/17 07:09 Potassium 4.2 mmol/L (3.6-5.2) 05/01/17 07:09 Chloride 100 mmol/L (98-107) 05/01/17 07:09 Carbon Dioxide 30 mmol/L (22-30) 05/01/17 07:09 Anion Gap 12 (10-20) 05/01/17 07:09 BUN 30 mg/dL (9-20) H 05/01/17 07:09 Creatinine 0.9 MG/DL (0.8-1.5) 05/01/17 07:09 Est GFR ( Amer) > 60 05/01/17 07:09 Est GFR (Non-Af Amer) > 60 05/01/17 07:09 POC Glucose (mg/dL) 142 mg/dL (65-110) H 05/01/17 17:00 Random Glucose 116 mg/dL (75-110) H 05/01/17 07:09 Calcium 8.8 mg/dl (8.6-10.4) 05/01/17 07:09 Phosphorus 4.5 mg/dL (2.5-4.5) 05/01/17 07:09 Magnesium 2.1 mg/dL (1.6-2.3) 05/01/17 07:09 Total Bilirubin 0.5 mg/dL (0.2-1.3) 05/01/17 07:09 AST 17 U/L (17-59) D 05/01/17 07:09 ALT 16 U/L (21-72) L D 05/01/17 07:09 Alkaline Phosphatase 43 U/L (38-126) 05/01/17 07:09 Total Creatine Kinase 47 U/L (55-170) L 04/29/17 14:07 CK-MB (Mass) 1.27 ng/mL (0.0-3.38) 04/29/17 14:07 Troponin I < 0.0120 ng/mL (0.00-0.120) 04/29/17 20:57 Troponin I, Quant < 0.0120 ng/mL (0.00-0.120) 04/29/17 14:07 NT-Pro-B Natriuret Pep 295 pg/mL (0-900) 04/29/17 06:28 Total Protein 6.1 g/dL (6.3-8.3) L 05/01/17 07:09 Albumin 3.4 g/dL (3.5-5.0) L 05/01/17 07:09 Globulin 2.7 gm/dL (2.2-3.9) 05/01/17 07:09 Albumin/Globulin Ratio 1.3 (1.0-2.1) 05/01/17 07:09 Triglycerides 104 mg/dL (0-149) D 04/30/17 09:48 Cholesterol 155 mg/dL (0-199) 04/30/17 09:48 LDL Cholesterol Direct 87 mg/dL (0-129) 04/30/17 09:48 HDL Cholesterol 46 mg/dL (30-70) 04/30/17 09:48 Free T4 1.18 ng/dL (0.78-2.19) 05/01/17 14:14 TSH 3rd Generation 0.43 mIU/L (0.46-4.68) L 04/30/17 09:48 Influenza Typ A,B (EIA) Negative for flu a/b (NEGATIVE) 04/29/17 08:58 - Hospital Course Hospital Course: As per admission: HPI: This is a 80-year-old male with a past medical history of hypertension, high cholesterol, CHF, CAD, CABG surgery 8 years ago ( he does not know the number of vessel bypass) aand smoking history, and likely has a history of COPD. He came with a chief complaint of worsening SOB for two days. and last night he woke up with a lot of difficulty breathing, and he reports dyspnea particularly on exertion. He was recently here he had a cardiac cath done showing a of about 25-30%in January 2016. At that time he was discharged with a life vest due to the low EF. When I saw him done in the ER, he did not have this LifeVest. The patient was not sure when this LifeVest was removed. Apparently he also sees a grocery supervisor in [facility] When I saw the patient his breathing was improved a little, he had been given lasix already. Per review of the CXRAY he did not look fulminatly in CHF, also BNP was low this time. He does look dry on exam, no pitting edema - also very distant breath sounds. I realize that he has been treated for CHF in the past however it appears that this time it maybe more of a COPD/Emphesema that is occuring. We will continue with PO lasix, also check a CT without contrast of the chest, cardiac markers, another EKG (he has a RBB) and also give solumedrol 125 x1 and then 40 BID. Start nebulizer treatments as well as Spiriva. Continue other home medication such as statin, MARY, coreg, ASA. Hospital Course: Patient is a 80 year old male with medical history of hypertension, high cholesterol, CHF, CAD, COPD who presents with worsening shortness of breath. Patient was admitted and was medically managed with respiratory treatments. Patient started to improved and was ambulating without difficulty. Patient was then discharge today and instructions to follow up was made aware to the patient. Pertinent Imaging: Chest X-ray: Mild cardiomegaly, but no active pulmonary disease CT scan of the chest: Mild centrilobular emphysema in the lungs. There is a 8mm subpleural nodule in the left anterior apex. There are no endobronchial lesions ; this nodule should be follow up with a CT scan in 6 months to assess stability. * There is aneurysmal dilatation of the ascending aorta which measures 4.0 x 3.9 cm. There are advanced atherosclerotic coronary artery calcifications. Echocardiogram: showed an ejection fraction of about 60% Discharge Exam - Head Exam Head Exam: NORMAL INSPECTION, NORMOCEPHALIC - Eye Exam Eye Exam: EOMI, Normal appearance - ENT Exam ENT Exam: Mucous Membranes Moist, Normal Exam - Respiratory Exam Respiratory Exam: Clear to PA & Lateral, NORMAL BREATHING PATTERN - Cardiovascular Exam Cardiovascular Exam: REGULAR RHYTHM, +S1, +S2 - GI/Abdominal Exam GI & Abdominal Exam: Normal Bowel Sounds, Soft - Extremities Exam Extremities exam: normal capillary refill, normal inspection - Neurological Exam Neurological exam: Alert, Oriented x3 - Psychiatric Exam Psychiatric exam: Normal Affect, Normal Mood - Skin Skin Exam: Dry, Normal Color, Warm Discharge Plan - Discharge Medications Prescriptions: Budesonide [Pulmicort Respules] 0.5 mg INH RQ12 #60 Tiotropium [Spiriva] 18 mcg INH RQ24 #30 cap - Follow Up Plan Condition: STABLE Disposition: HOME/ ROUTINE Instructions: Prednisone (By mouth), Budesonide (By breathing), Tiotropium (By breathing), Heart Healthy Diet (GEN), Dyspnea (GEN) Additional Instructions: Please discharge patient home as per Dr. Estrada Please start the following new medications as prescribed: 1. Spiriva 18mcg Inhalation Q24 Daily 2. Pulmicort 0.5mg Inhalation Q12H 3. Prednisone 10mg PO -Take 4 tablets PO daily for 2 days -Take 3 tablets PO daily for 2 days -Take 2 tablets PO daily for 2 days -Take 1 tablet PO daily for 2 days Please resume all home medications as prescribed. A CT Chest w/o contrast showed a 8 mm subpleural nodule in the left anterior apex. Please follow up CT scan in 6 months is recommended to assess stability. Please follow up with the [facility] within one week Please follow up with biological lab technician Dr. Joya at the [facility] within one week regarding the 10mm adrenal adenoma within one week Please return to the hospital if symptoms resume. Referrals: Pam Joya MD [Staff Provider] - 05/08/17 <Jose Estrada - Last Filed: 05/02/17 10:46> Provider - Provider Date of Admission: 04/29/17 08:54 Attending physician: Chet Irving, DO Hospital Course - Lab Results Lab Results: Most Recent Lab Values WBC 8.8 K/uL (4.8-10.8) 05/01/17 07:09 RBC 4.51 Mil/uL (4.40-5.90) 05/01/17 07:09 Hgb 14.1 g/dL (12.0-18.0) 05/01/17 07:09 Hct 43.2 % (35.0-51.0) 05/01/17 07:09 MCV 95.8 fL (80.0-94.0) H 05/01/17 07:09 MCH 31.4 pg (27.0-31.0) H 05/01/17 07:09 MCHC 32.7 g/dL (33.0-37.0) L 05/01/17 07:09 RDW 13.3 % (11.5-14.5) 05/01/17 07:09 Plt Count 222 K/uL (130-400) 05/01/17 07:09 MPV 8.1 fL (7.2-11.7) 05/01/17 07:09 Neut % (Auto) 85.2 % (50.0-75.0) H 05/01/17 07:09 Lymph % (Auto) 10.6 % (20.0-40.0) L 05/01/17 07:09 [place] % (Auto) 4.1 % (0.0-10.0) 05/01/17 07:09 Eos % (Auto) 0.0 % (0.0-4.0) 05/01/17 07:09 Baso % (Auto) 0.1 % (0.0-2.0) 05/01/17 07:09 Neut # 7.5 K/uL (1.8-7.0) H 05/01/17 07:09 Lymph # 0.9 K/uL (1.0-4.3) L 05/01/17 07:09 [place] # 0.4 K/uL (0.0-0.8) 05/01/17 07:09 Eos # 0.0 K/uL (0.0-0.7) 05/01/17 07:09 Baso # 0.0 K/uL (0.0-0.2) 05/01/17 07:09 PT 10.2 SECONDS (9.7-12.2) 04/29/17 06:28 INR 0.9 04/29/17 06:28 APTT 29 SECONDS (21-34) 04/29/17 06:28 Sodium 138 mmol/L (132-148) 05/01/17 07:09 Potassium 4.2 mmol/L (3.6-5.2) 05/01/17 07:09 Chloride 100 mmol/L (98-107) 05/01/17 07:09 Carbon Dioxide 30 mmol/L (22-30) 05/01/17 07:09 Anion Gap 12 (10-20) 05/01/17 07:09 BUN 30 mg/dL (9-20) H 05/01/17 07:09 Creatinine 0.9 MG/DL (0.8-1.5) 05/01/17 07:09 Est GFR ( Amer) > 60 05/01/17 07:09 Est GFR (Non-Af Amer) > 60 05/01/17 07:09 POC Glucose (mg/dL) 142 mg/dL (65-110) H 05/01/17 17:00 Random Glucose 116 mg/dL (75-110) H 05/01/17 07:09 Calcium 8.8 mg/dl (8.6-10.4) 05/01/17 07:09 Phosphorus 4.5 mg/dL (2.5-4.5) 05/01/17 07:09 Magnesium 2.1 mg/dL (1.6-2.3) 05/01/17 07:09 Total Bilirubin 0.5 mg/dL (0.2-1.3) 05/01/17 07:09 AST 17 U/L (17-59) D 05/01/17 07:09 ALT 16 U/L (21-72) L D 05/01/17 07:09 Alkaline Phosphatase 43 U/L (38-126) 05/01/17 07:09 Total Creatine Kinase 47 U/L (55-170) L 04/29/17 14:07 CK-MB (Mass) 1.27 ng/mL (0.0-3.38) 04/29/17 14:07 Troponin I < 0.0120 ng/mL (0.00-0.120) 04/29/17 20:57 Troponin I, Quant < 0.0120 ng/mL (0.00-0.120) 04/29/17 14:07 NT-Pro-B Natriuret Pep 295 pg/mL (0-900) 04/29/17 06:28 Total Protein 6.1 g/dL (6.3-8.3) L 05/01/17 07:09 Albumin 3.4 g/dL (3.5-5.0) L 05/01/17 07:09 Globulin 2.7 gm/dL (2.2-3.9) 05/01/17 07:09 Albumin/Globulin Ratio 1.3 (1.0-2.1) 05/01/17 07:09 Triglycerides 104 mg/dL (0-149) D 04/30/17 09:48 Cholesterol 155 mg/dL (0-199) 04/30/17 09:48 LDL Cholesterol Direct 87 mg/dL (0-129) 04/30/17 09:48 HDL Cholesterol 46 mg/dL (30-70) 04/30/17 09:48 Free T4 1.18 ng/dL (0.78-2.19) 05/01/17 14:14 TSH 3rd Generation 0.43 mIU/L (0.46-4.68) L 04/30/17 09:48 Influenza Typ A,B (EIA) Negative for flu a/b (NEGATIVE) 04/29/17 08:58 Attending/Attestation - Attestation I have personally seen and examined this patient.: Yes I have fully participated in the care of the patient.: Yes I have reviewed all pertinent clinical information, including history, physical exam and plan: Yes Notes (Text): 05/02/17 10:46 Patient was seen and examined at bedside Patient states that he is feeling much better We will discharge the patient home on prednisone taper I discussed the discharge plan with the resident and agree with the discharge note by the resident.
== END 2017-05-01 19:00 | disposition home or self-care (01) | DRG 541 ==
LOC: C.ER 05:46 → C.9E 07:51 → OBSVTOIN 08:54 → C.6T 10:05
PROVIDERS: ADMIT Hospitalist; ATTEND Hospitalist
DX: J43.2 Centrilobular emphysema (principal); I50.42 Chronic combined systolic (congestive) and diastolic (congestive) heart failure; I11.0 Hypertensive heart disease with heart failure; I71.2 Thoracic aortic aneurysm, without rupture; I25.118 Atherosclerotic heart disease of native coronary artery with other forms of angina pectoris; E78.00 Pure hypercholesterolemia, unspecified; I25.5 Ischemic cardiomyopathy; Z91.14 Patient's other noncompliance with medication regimen; Z87.891 Personal history of nicotine dependence; Z95.1 Presence of aortocoronary bypass graft